=== PATIENT | female | born 1990 | race African-American/Black ===

== ENCOUNTER 2017-06-14 11:40 | Emergency (ER) | payer MEDICAID ==
[~2017-06-14] VITALS: Ht 182.9 cm; Wt 77.1 kg
[2017-06-14] MEDS ORDERED: cloNIDine HCL 0.1 MG TAB PO ONE (12:00)
[2017-06-14 13:04] VITALS: BP 136/101
== END 2017-06-14 13:12 | disposition home or self-care (01) ==
LOC: ER 11:40
DX: I10 Essential (primary) hypertension (principal); Z76.0 Encounter for issue of repeat prescription

== ENCOUNTER 2018-11-08 22:31 | Emergency (ER) | payer MEDICAID ==
[~2018-11-08] VITALS: Ht 182.9 cm; Wt 77.1 kg
[2018-11-08] MEDS ORDERED: cloNIDine HCL 0.1 MG TAB PO ONE (23:30)
[2018-11-09 00:42] VITALS: BP 123/95
== END 2018-11-09 00:52 | disposition home or self-care (01) ==
LOC: ER 22:31
DX: I16.0 Hypertensive urgency (principal)

== ENCOUNTER 2019-03-04 08:58 | Emergency (ER) | payer MEDICAID ==
[~2019-03-04] VITALS: Ht 182.9 cm; Wt 72.6 kg
[2019-03-04 09:21] VITALS: BP 148/104
[2019-03-04] MEDS ORDERED: METHOCARBAMOL 500 MG TAB PO ONE (09:45)
[2019-03-04] MEDS ORDERED: KETOROLAC TROMETH 60MG/2ML VIAL IM ONE (09:45)
== END 2019-03-04 10:15 | disposition home or self-care (01) ==
LOC: ER 09:00
DX: M51.34 Other intervertebral disc degeneration, thoracic region (principal); M62.838 Other muscle spasm; F17.210 Nicotine dependence, cigarettes, uncomplicated
CPT/HCPCS: 96372; 99283; J1885

== ENCOUNTER 2019-04-29 11:36 | Inpatient (IN) | payer MEDICAID ==
[~2019-04-29] VITALS: Ht 182.9 cm; Wt 75.3 kg
[2019-04-29] MEDS ORDERED: LORazepam 2MG/ML-1ML VIAL IV ONE (12:30)
[2019-04-29] MEDS ORDERED: LORazepam 0.5 MG TAB PO ONE (12:30)
[2019-04-29 12:53] LABS: Mean Corpuscular Hemoglobin 37.2 pg (28.0-32.0)
[2019-04-29 12:55] LABS: Hematocrit 36.3 % (36.0-46.0); Hemoglobin 12.4 g/dL (12.2-16.2); Mean Corpuscular Hgb Conc. 34.2 g/dL (32.0-36.0); Platelet Count (auto) 140 10^3/uL (140-450); Red Blood Cells 3.33 10^6/uL (4.0-5.20); Red Cell Distribution Width 15.5 % (11.8-14.3)
[2019-04-29 12:59] LABS: Basophils % (manual) 0 (0.0-2.0); Blast Cells 0; Eosinophils % (manual) 0 (0-7); Metamyelocytes % 0; Myelocytes % 0; Promyelocytes % 0; Reactive Lymphocytes 0
[2019-04-29 13:11] LABS: Albumin 3.1 g/dL (3.4-5.0); Anion Gap 15 (5-15); Blood Urea Nitrogen 5 mg/dL (7-18); Carbon Dioxide 25 mmol/L (21-32); Chloride 97 mmol/L (98-107); Glucose 118 mg/dL (74-106); Potassium 3.3 mmol/L (3.5-5.1); Sodium 137 mmol/L (136-145)
[2019-04-29 13:17] LABS: Alanine Aminotransferase 73 U/L (13-56); Alkaline Phosphatase 125 U/L (45-117); Aspartate Aminotransferase 335 U/L (15-37); Bilirubin, Total 0.9 mg/dL (0.2-1.0); GFR African American 137 mL/min; GFR Non-African American 113 mL/min; Total Protein 7.5 g/dL (6.4-8.2)
[2019-04-29 13:19] LABS: BUN/Creatinine Ratio 7.7
[2019-04-29 13:22] LABS: Calcium 5.8 mg/dL (8.5-10.1)
[2019-04-29 13:34] LABS: Band Neutrophils % (manual) 1; Lymphocytes % (manual) 45 (10.0-50.0); Monocytes % (manual) 20 (0-12)
[2019-04-29] MEDS ORDERED: SODIUM CHLORIDE 0.9% 1,000 ML IV ONE ×2 (15:08)
[2019-04-29] MEDS ORDERED: CALCIUM CHL 100MG/ML 1,000 MG in D5W 5% 100 ML IV ONE (15:15)
[2019-04-29] MEDS ORDERED: ONDANSETRON HCL 4 MG/2 ML VIAL IV ONE (16:45)
[2019-04-29] MEDS ORDERED: MORPHINE SULF INJ 2 MG/ML SYRINGE 1ML IV ONE (16:45)
[2019-04-29] MEDS ORDERED: KETOROLAC TROMETH 30 MG/ML 1ML VIAL IV ONE (17:00)
[2019-04-29] MEDS ORDERED: NICOTINE 14 MG/24HR TOPICAL PATCH TD ONE (19:15)
[2019-04-29] MEDS ORDERED: NITROGLYCERIN 0.4 MG SL TAB SL PRN (19:15)
[2019-04-29] MEDS ORDERED: MORPHINE SULF INJ 2 MG/ML SYRINGE 1ML IV PRN ×2 (19:15)
[2019-04-29] MEDS ORDERED: CALCIUM CHL 100MG/ML 500 MG in D5W 5% 100 ML IV ONE (19:15)
[2019-04-29] MEDS ORDERED: ACETAMINOPHEN 500 MG TAB PO PRN (19:15)
[2019-04-29] MEDS ORDERED: ONDANSETRON HCL 4 MG/2 ML VIAL IV PRN (19:15)
[2019-04-29 20:30] VITALS: BP 122/81
--- NOTE | 2019-04-29 20:30 | NUR ---
Telemetry admit from ER RAFAEL SEVILLA admitted to Telemetry unit after SBAR received. Patient oriented to LINA POPE RN primary RN, unit, room, bed, and unit policies regarding patient care and visiting hours. Patient now on continuous telemetry monitoring, tele box # 50 and telemetry reading on arrival to unit is SR. Patient placed on bedside oxygen, weighed by bedscale and encouraged to call if they need something. All questions and concerns addressed, patient verbalized understanding.
[2019-04-29] MEDS: SOD CHL 0.9%/ KCL 20MEQ 1,000 ML IV SCH (21:00)
[2019-04-29] MEDS: HYDROcodone-ACET 5/325MG TAB PO PRN (21:35)
[2019-04-29] MEDS: LORazepam 0.5 MG TAB PO PRN (21:35)
[2019-04-29 22:00] VITALS: BP 122/81
[2019-04-30 05:00] VITALS: BP 127/84
[2019-04-30] MEDS: SOD CHL 0.9%/ KCL 20MEQ 1,000 ML IV SCH ×2 (05:18→16:18)
[2019-04-30 07:31] LABS: BUN/Creatinine Ratio 10.8; Calcium 6.1 mg/dL (8.5-10.1)
[2019-04-30 07:36] LABS: Potassium 2.9 mmol/L (3.5-5.1)
--- NOTE | 2019-04-30 07:37 | NUR ---
CRITICAL LAB Received call from Cinthya tejeda, regarding critical potassium level, 2.9. On-call hospitalist paged, awaiting call back.
--- NOTE | 2019-04-30 07:44 | NUR ---
AWARE Received call back from Julian Chang PHYSICS PROFESSOR, new order received for Potassium 40meq PO.
[2019-04-30] MEDS ORDERED: POTASSIUM CHL 20 Meq TABLET PO ONE (07:45)
--- NOTE | 2019-04-30 08:00 | NUR ---
Opening Shift Note Assumed care of patient from NOC RN, Warner. patient is awake and alert with no S/S of distress/SOB or pain. Instructed on POC and to call for assistance PRN, verbalized understanding. Bed in lowest locked position with siderails up X2 call light within reach. Will continue to monitor for changes Q1hr and PRN.
[2019-04-30] MEDS: FAMOTIDINE 20 MG TAB PO SCH (08:18)
[2019-04-30] MEDS ORDERED: LOSA-69 PO (08:29)
[2019-04-30 08:33] VITALS: BP 135/90
--- NOTE | 2019-04-30 08:53 | NUR ---
URINE URINE SAMPLE COLLECTED AND SENT TO LAB VIA BULLET.
[2019-04-30 09:00] VITALS: BP 136/105
[2019-04-30 09:17] LABS: Urine Bacteria NONE SEEN /hpf (None Seen); Urine Blood Negative /uL (Negative); Urine Specific Gravity 1.017 (1.001-1.035); Urine WBC 1 /hpf (0 - 5)
--- NOTE | 2019-04-30 11:50 | NUR ---
AMA Patient signed AMA form for smoking purposes. Instructed on hospital policies, verbalized understanding.
[2019-04-30 13:00] VITALS: BP 148/102
[2019-04-30] MEDS ORDERED: LOSARTAN POTASSIUM 25 MG TAB PO ONE (15:30)
[2019-04-30 17:06] VITALS: BP 139/74
--- NOTE | 2019-04-30 18:40 | NUR ---
IV Removed leaking IV from right wrist, catheter intact and pressure dressing applied. New IV access obtained with 22g at the left AC after 4 attempts. Patient tolerated well.
--- NOTE | 2019-04-30 18:57 | NUR ---
CLOSING NOTE Endorsed care of patient to NOC Warner KERR.
--- NOTE | 2019-04-30 19:00 | NUR ---
Opening Shift Note Assumed care of patient, awake and alert. No S/S of distress/SOB or pain. Instructed on POC and to call for assist PRN, will continue to monitor for changes Q1hr and PRN.
--- NOTE | 2019-04-30 19:00 | NUR ---
[email or web address] [email or web address].v.[email or web address].v.u=[email or web address]&age.v.v=[email or web address]&ageGro up.v.c=[id number]&ageGroup.v.dn=Aged&patientPerson.administrativeGenderCode.c=F&patientPerson.a dministrativeGenderCode.dn=Female&performer=PROV&informationRecipient=PAT&q=[id number] [id number] Addendum: 04/30/19 at 1957 by LINA POPE RN RN Computer malfunction and random entry was entered.
[2019-04-30] MEDS: LORazepam 0.5 MG TAB PO PRN (20:15)
[2019-04-30] MEDS: HYDROcodone-ACET 5/325MG TAB PO PRN (20:15)
[2019-04-30 22:00] VITALS: BP 158/106
[2019-05-01 05:00] VITALS: BP 150/100
[2019-05-01] MEDS: SOD CHL 0.9%/ KCL 20MEQ 1,000 ML IV SCH (05:53)
[2019-05-01 06:43] LABS: Basophils # (auto) 0 uL; Eosinophils # (auto) 0 uL; Eosinophils % (auto) 1.1 % (0.0-7.0); Hemoglobin 10.3 g/dL (12.2-16.2); Lymphocytes # (auto) 1.8 uL; White Blood Cell 4.2 10^3/uL (4.4-10.8)
[2019-05-01 06:45] LABS: Basophils % (auto) 0.7 % (0.0-2.0); Lymphocytes % (auto) 43.2 % (10.0-50.0); Mean Corpuscular Hemoglobin 37.8 pg (28.0-32.0); Mean Corpuscular Hgb Conc. 34.4 g/dL (32.0-36.0); Mean Corpuscular Volume 110.1 fL (80.0-100.0); Monocytes # (auto) 0.6 uL; Monocytes % (auto) 13.3 % (0.0-12.0); Neutrophils # (auto) 1.7 uL; Neutrophils % (auto) 41.7 % (37.0-80.0); Platelet Count (auto) 93 10^3/uL (140-450); Red Blood Cells 2.72 10^6/uL (4.0-5.20); Red Cell Distribution Width 14.5 % (11.8-14.3)
[2019-05-01 07:01] LABS: Potassium 3.7 mmol/L (3.5-5.1)
[2019-05-01 07:12] LABS: Albumin 2.3 g/dL (3.4-5.0); BUN/Creatinine Ratio 14.3; Bilirubin, Total 0.4 mg/dL (0.2-1.0); Total Protein 5.6 g/dL (6.4-8.2)
--- NOTE | 2019-05-01 07:34 | NUR ---
CRITICAL LAB Received call from Mehul tejeda, regarding critical calcium level, 5.6, and critical magnesium level, 0.9. call person hospitalist paged, awaiting call back.
[2019-05-01 07:37] LABS: Calcium 5.6 mg/dL (8.5-10.1); Magnesium 0.9 mg/dL (1.6-2.6)
--- NOTE | 2019-05-01 07:55 | NUR ---
MD [place] Received call back from Julian Chang ASSEMBLER FINGER [employer]S, new orders received.
[2019-05-01] MEDS ORDERED: CALCIUM GLUC 4.65meq/50ml D5AE 50 ML IV ONE ×2 (08:00→10:00)
--- NOTE | 2019-05-01 08:00 | NUR ---
Opening Shift Note Assumed care of patient, awake and alert. No S/S of distress/SOB or pain. Instructed on POC and to call for assistance PRN. Bed in lowest position with siderails up X2 and call light within reach. Will continue to monitor for changes Q1hr and PRN.
[2019-05-01] MEDS: FAMOTIDINE 20 MG TAB PO SCH (09:30)
[2019-05-01] MEDS: LOSARTAN POTASSIUM 50 MG TAB PO SCH (09:31)
[2019-05-01] MEDS ORDERED: CHOLECALCIFEROL (VITD3) 1,000 UNIT TAB PO ONE (11:15)
[2019-05-01] MEDS ORDERED: POTASSIUM CHL 20 Meq TABLET PO ONE (11:15)
[2019-05-01] MEDS ORDERED: HCTZ 25 MG TAB PO ONE (11:30)
--- NOTE | 2019-05-01 12:18 | NUR ---
HYPERTENSION Paged Dr. Garcia regarding hypertension, 155/113. Awaiting call back.
[2019-05-01] MEDS: MAGNESIUM SULFATE 1GM/100ML 100 ML IV SCH ×4 (12:25→15:53)
[2019-05-01 13:00] VITALS: BP 155/113
--- NOTE | 2019-05-01 13:35 | NUR ---
AWARE Dr. Garcia aware of hypertension, no new orders at this time.
[2019-05-01] MEDS: LORazepam 0.5 MG TAB PO PRN ×2 (15:22→21:56)
--- NOTE | 2019-05-01 15:22 | NUR ---
IV Infiltrated IV removed, catheter intact and pressure dressing applied. IV access obtained, via clean sterile technique by inserting 22 gauge catheter at right forearm after 3 attempts. IV secured properly. No trauma to site. Patient tolerated well.
[2019-05-01 16:51] VITALS: BP 133/101
[2019-05-01 17:09] LABS: Calcium 6.6 mg/dL (8.5-10.1); Magnesium 1.7 mg/dL (1.6-2.6)
--- NOTE | 2019-05-01 19:10 | NUR ---
CLOSING NOTE Endorsed care of patient to NOC Warner KERR.
[2019-05-01 21:53] VITALS: BP 139/104
[2019-05-01] MEDS: HYDROcodone-ACET 5/325MG TAB PO PRN (21:56)
--- NOTE | 2019-05-01 22:01 | NUR ---
Hospitalist paged: Hospitalist paged d/t patient having an elevated blood pressure reading 139/104 with a HR of 88.
--- NOTE | 2019-05-01 22:20 | NUR ---
Hospitalist returned page: Hospitalist updated on patient condition and situation and new orders updated.
[2019-05-01] MEDS ORDERED: LABETALOL HCL 5 MG/ML ML 20ML VIAL IV ONE (22:30)
[2019-05-02] VITALS (7 sets, daily range): BP systolic 111–157; BP diastolic 71–110
--- NOTE | 2019-05-02 09:40 | NUR ---
URINE TOXICOLOGY UA COLLECTED AND SENT TO LAB VIA BULLET.
[2019-05-02] MEDS: FAMOTIDINE 20 MG TAB PO SCH (09:43)
[2019-05-02] MEDS: LOSARTAN POTASSIUM 50 MG TAB PO SCH (09:43)
[2019-05-02] MEDS: CHOLECALCIFEROL (VITD3) 1,000 UNIT TAB PO SCH (09:44)
[2019-05-02] MEDS: HCTZ 25 MG TAB PO SCH (09:44)
[2019-05-02] MEDS ORDERED: CHOLECALCIFEROL (VITD3) 1,000 UNIT TAB PO SCH (10:00)
[2019-05-02 10:25] LABS: Amphetamine Screen, Urine NEGATIVE (NEGATIVE); Barbiturate Scree,Urine NEGATIVE (NEGATIVE); Benzodiazephine Screen, Urine NEGATIVE (NEGATIVE); Cannabinoid Screen, Urine NEGATIVE (NEGATIVE); Cocaine Screen, Urine NEGATIVE (NEGATIVE); Opiate Scree,Urine NEGATIVE (NEGATIVE); Phencyclidine Screen, Urine NEGATIVE (NEGATIVE)
--- NOTE | 2019-05-02 11:52 | NUR ---
Nutrition Assessment Notes please see attached link for complete assessment Est. Needs BW [id number] kcal (25-30kcal/kgBW), 75-90 gms pro (1.0-1.2 gms/kgBW). Will continue to monitor pertinent labs and reassess nutrient need prn Addendum: 05/02/19 at [address] Amended: Links added.
--- NOTE | 2019-05-02 13:20 | NUR ---
BP REASSESSMENT REASSESSED BP AFTER ELEVATED READING. BP IS 127/90 WITH A HEART RATE OF 81. PER PATIENT SHE HAD RETURNED FROM SMOKING OUTSIDE PRIOR TO PREVIOUS READING. WILL CONTINUE TO MONITOR.
[2019-05-02 16:16] LABS: BUN/Creatinine Ratio 11.5; Calcium 6.7 mg/dL (8.5-10.1); Magnesium 1.4 mg/dL (1.6-2.6); Potassium 3.7 mmol/L (3.5-5.1)
--- NOTE | 2019-05-02 16:41 | NUR ---
PAGED DR. PATTERSON PAGED RE: MAG 1.4. WAITING FLORAL DECORATOR BACK.
--- NOTE | 2019-05-02 17:04 | NUR ---
ON-CALL HOSPITALIST PAGED PATIENTS BP 157/107 WITH A RETAKE OF 153/109, HR 83. NO PRN MEDICATIONS AVAILABLE. CALLED ON-CALL HOSPITALIST TO INFORM. WAITING COTTON JAMMER BACK.
--- NOTE | 2019-05-02 17:48 | NUR ---
ON-CALL HOSPITALIST PAGED MD PAGED AGAIN. WAITING RETICLE PRINTER BACK.
--- NOTE | 2019-05-02 17:50 | NUR ---
SPOKE TO MD SPOKE TO DR. ASKEW RE: MAG 1.4 AND RECENT BP. ORDERS RECEIVED FOR LABETALOL 10 MG IV Q2H PRN SBP GREATER THAN 150. ORDER READ BACK. NO FURTHER ORDERS. PT CURRENTLY OFF UNIT. WILL REASSESS BP UPON PATIENTS RETURN.
[2019-05-02] MEDS: LABETALOL HCL 5 MG/ML ML 20ML VIAL IV PRN ×2 (18:26→22:08)
--- NOTE | 2019-05-02 18:26 | NUR ---
RETURNED TO UNIT PT RETURNED TO UNIT. BP REASSESSED, CURRENTLY 163/108, HR 92. LABETALOL ADMINISTERED PER MD ORDER. RE-ASSESSMENT TO BE ENDORSED TO ONCOMING SHIFT.
--- NOTE | 2019-05-02 19:24 | NUR ---
Opening Shift Note Assumed care of patient, awake and alert x 4. No S/S of distress/SOB or pain. Bed is in lowest position and locked. Call light wihtin reach. Board updated. Tele box number matches monitor and leads are in correct placement. Instructed on POC and to call for assist PRN, will continue to monitor for changes Q1hr and PRN.
[2019-05-02] MEDS: LORazepam 0.5 MG TAB PO PRN (22:07)
[2019-05-02] MEDS: HYDROcodone-ACET 5/325MG TAB PO PRN (22:07)
[2019-05-03 05:00] VITALS: BP 129/85
[2019-05-03 06:28] LABS: Basophils # (auto) 0 uL; Hemoglobin 9.8 g/dL (12.2-16.2); Lymphocytes # (auto) 1.7 uL; Monocytes # (auto) 0.6 uL; Platelet Count (auto) 110 10^3/uL (140-450); White Blood Cell 4.8 10^3/uL (4.4-10.8)
[2019-05-03 06:30] LABS: Basophils % (auto) 0.9 % (0.0-2.0); Eosinophils # (auto) 0.1 uL; Eosinophils % (auto) 1.1 % (0.0-7.0); Mean Corpuscular Hemoglobin 37.8 pg (28.0-32.0); Mean Corpuscular Hgb Conc. 34.9 g/dL (32.0-36.0); Mean Corpuscular Volume 108.4 fL (80.0-100.0); Monocytes % (auto) 12.8 % (0.0-12.0); Neutrophils # (auto) 2.3 uL; Neutrophils % (auto) 49.2 % (37.0-80.0); Red Blood Cells 2.58 10^6/uL (4.0-5.20); Red Cell Distribution Width 14.5 % (11.8-14.3)
[2019-05-03 06:48] LABS: Potassium 3.5 mmol/L (3.5-5.1)
[2019-05-03 07:01] LABS: Albumin 2.5 g/dL (3.4-5.0); Bilirubin, Total 0.3 mg/dL (0.2-1.0); Calcium 6.3 mg/dL (8.5-10.1); Magnesium 1.3 mg/dL (1.6-2.6); Total Protein 5.8 g/dL (6.4-8.2)
--- NOTE | 2019-05-03 07:30 | NUR ---
Opening Shift Note Assumed care of patient, asleep, arouses to name. No S/S of distress/SOB or pain. Bed in lowest and locked position with side rails up x2 and call light in reach. Instructed on POC and to call for assist PRN, will continue to monitor for changes Q1hr and PRN.
[2019-05-03 09:00] VITALS: BP 144/78
[2019-05-03] MEDS: FAMOTIDINE 20 MG TAB PO SCH (09:32)
[2019-05-03] MEDS: LOSARTAN POTASSIUM 50 MG TAB PO SCH (09:32)
[2019-05-03] MEDS: HCTZ 25 MG TAB PO SCH (09:33)
[2019-05-03] MEDS: CHOLECALCIFEROL (VITD3) 1,000 UNIT TAB PO SCH (09:33)
[2019-05-03 13:00] VITALS: BP 146/101
[2019-05-03] MEDS ORDERED: CALCIUM CHL 100MG/ML 1,000 MG in D5W 5% 100 ML IV ONE (13:00)
[2019-05-03] MEDS: MAGNESIUM SULFATE 1GM/100ML 100 ML IV SCH ×2 (13:00→14:00)
--- NOTE | 2019-05-03 14:30 | NUR ---
PT DISCUSSED LEAVING AGAINST MEDICAL ADVICE. THIS RN EDUCATED THE IMPORTANCE OF THE PTS CARE IN THE HOSPITAL AND THE STATE OF THEIR ILLNESS. THE PT WAS EDUCATED THAT HER LEAVING CAN RESULT IN IF HER ILLNESS IS NOT CARED FOR. THE PT DISCUSSED LEAVING THE HOSPITAL WITH DR. PATTERSON WELL. ACCORDING TO THE DR, SHE HAD RECOMMENDED THE PT TO RECEIVE THE CALCIUM AND MAGNESIUM MEDICATIONS AND THE IMPORTANCE OF THE MEDICATIONS. THE PT VERBALIZED UNDERSTANDING. THE PT RECEIVED THE CALCIUM TREATMENT, BUT HAS REFUSED THE MAGNESIUM TREATMENTS. THE PT STATED "I HAVE A SON AT HOME AND MY SITE SAFETY COORDINATOR IS NOT WILLING TO WATCH HIM ANY LONGER. I NEED TO LEAVE TO TAKE CARE OF MY SON". THIS RN DISCUSSED THE IMPORTANCE OF THE PT RECEIVING HER MAGNESIUM PRIOR TO LEAVING AND THE PT CONTINUED TO DECLINE THE MAGNESIUM AND ASKED TO SIGN THE AMA PAPER WITH REMOVAL OF THE IV AND TELEMETRY BOX.
--- NOTE | 2019-05-03 14:30 | NUR ---
Encourage to follow up with PMD. Patient verbalized understanding. IV removed with catheter intact, pressure dressing applied. Telemetry unit returned to ICU.
--- NOTE | 2019-05-03 14:50 | NUR ---
PT REFUSED WHEEL CHAIR OR ASSISTANCE TO HER VEHICLE. THE PT WALKED OFF UNIT WITH NO DISTRESS NOTED AT THIS TIME AND WITH ALL PERSONAL BELONGINGS.
== END 2019-05-03 14:50 | disposition left against medical advice (07) | DRG 425 ==
LOC: ER 11:36 → TELE 11:37 → TELE-WESTW 20:34
PROVIDERS: ADMIT Nurse Practitioner Acute Care; ATTEND Internal Medicine
DX: E83.51 Hypocalcemia (principal); D69.6 Thrombocytopenia, unspecified; E83.42 Hypomagnesemia; E86.0 Dehydration; E87.6 Hypokalemia; I10 Essential (primary) hypertension; D64.9 Anemia, unspecified; Z53.21 Procedure and treatment not carried out due to patient leaving prior to being seen by health care provider; F41.1 Generalized anxiety disorder; Z72.0 Tobacco use; Z71.6 Tobacco abuse counseling; Z79.899 Other long term (current) drug therapy
CPT/HCPCS: 36415; 71045; 80048; 80053; 80307; 81001; 82306; 82310; 83735; 83970; 84132; 84443; 84484; 85007; 85025; 85027; 93005; 96361; 96365; 96375; G0378; J0610; J1885; J2405; J7060

== ENCOUNTER → 2019-07-29 | Emergency (ER) | payer MEDICAID ==
[~2019-07-29] MED LIST: LOSA-69 PO
== END | disposition left against medical advice (07) ==
LOC: ER 21:35
DX: I10 Essential (primary) hypertension (principal); Z53.21 Procedure and treatment not carried out due to patient leaving prior to being seen by health care provider

== ENCOUNTER 2019-08-02 19:06 | Emergency (ER) | payer MEDICAID ==
[~2019-08-02] VITALS: Ht 182.9 cm; Wt 72.6 kg
[2019-08-02] MEDS ORDERED: cloNIDine HCL 0.1 MG TAB PO ONE (19:45)
[2019-08-02 19:50] VITALS: BP 184/131
== END 2019-08-02 21:29 | disposition left against medical advice (07) ==
LOC: ER 19:08
DX: J34.89 Other specified disorders of nose and nasal sinuses (principal); Z53.21 Procedure and treatment not carried out due to patient leaving prior to being seen by health care provider

== ENCOUNTER → 2019-09-13 | Emergency (ER) | payer MEDICAID ==
[~2019-09-13] VITALS: Ht 182.9 cm; Wt 74.8 kg
[~2019-09-13] MED LIST changes: +LORazepam 2MG/ML-1ML VIAL IV ONE; +MAGNESIUM SULFATE 1GM/100ML 100 ML IV ONE; +ONDANSETRON HCL 4 MG/2 ML VIAL IV ONE; +POTASSIUM EFFERVESENT TAB 25 MEQ PO ONE; +cloNIDine HCL 0.1 MG TAB PO ONE
[2019-09-13 21:20] LABS: White Blood Cell 2.2 10^3/uL (4.4-10.8)
[2019-09-13 21:22] LABS: Hematocrit 34.7 % (36.0-46.0); Hemoglobin 12.1 g/dL (12.2-16.2); Mean Corpuscular Hemoglobin 37.5 pg (28.0-32.0); Mean Corpuscular Hgb Conc. 34.9 g/dL (32.0-36.0); Mean Corpuscular Volume 107.3 fL (80.0-100.0); Platelet Count (auto) 97 10^3/uL (140-450); Red Blood Cells 3.24 10^6/uL (4.0-5.20); Red Cell Distribution Width 18.2 % (11.8-14.3)
[2019-09-13 21:23] LABS: Basophils % (manual) 0 (0.0-2.0); Blast Cells 0; Myelocytes % 0; Promyelocytes % 0; Reactive Lymphocytes 0
[2019-09-13 21:35] LABS: INR 1.18 (0.9-1.15); Partial Thromboplastin Time 26.5 sec (23.64-32.05)
[2019-09-13 21:38] LABS: Albumin 2.9 g/dL (3.4-5.0); BUN/Creatinine Ratio 7.3; Calcium 6.8 mg/dL (8.5-10.1)
[2019-09-13 21:43] LABS: Bilirubin, Total 0.7 mg/dL (0.2-1.0); Total Protein 7.1 g/dL (6.4-8.2)
[2019-09-13 21:45] LABS: Band Neutrophils % (manual) 2; Eosinophils % (manual) 1 (0-7); Lymphocytes % (manual) 47 (10.0-50.0); Metamyelocytes % 5; Monocytes % (manual) 4 (0-12)
[2019-09-13 21:48] LABS: Magnesium 0.9 mg/dL (1.6-2.6); Potassium 2.8 mmol/L (3.5-5.1)
[2019-09-13 23:29] LABS: Urine WBC None Seen /hpf (0 - 5)
[2019-09-13 23:45] LABS: Urine Bacteria NONE SEEN /hpf (None Seen); Urine Blood Negative /uL (Negative); Urine Specific Gravity 1.004 (1.001-1.035)
[2019-09-14] VITALS: BP 120/85
== END | disposition home or self-care (01) ==
LOC: ER 20:53
DX: I10 Essential (primary) hypertension (principal); E83.51 Hypocalcemia; E83.42 Hypomagnesemia; F41.9 Anxiety disorder, unspecified; F17.210 Nicotine dependence, cigarettes, uncomplicated
CPT/HCPCS: 36415; 80053; 81001; 83735; 83880; 84484; 84702; 85007; 85027; 85379; 85610; 85730; 93005; 96365; 96366; 96375; 99285; J2060; J2405; J3475

== ENCOUNTER 2020-01-06 11:29 | Inpatient (IN) | payer MEDICAID ==
[~2020-01-06] VITALS: Ht 182.9 cm; Wt 72.1 kg
[~2020-01-06 11:29] MED LIST changes: -LORazepam 2MG/ML-1ML VIAL IV ONE; -MAGNESIUM SULFATE 1GM/100ML 100 ML IV ONE; -ONDANSETRON HCL 4 MG/2 ML VIAL IV ONE; -POTASSIUM EFFERVESENT TAB 25 MEQ PO ONE; -cloNIDine HCL 0.1 MG TAB PO ONE
[2020-01-06 11:57] LABS: Basophils # (auto) 0 10 ^3/uL (0-0.2); Basophils % (auto) 0.5 % (0.0-2.0); Eosinophils # (auto) 0 10 ^3/uL (0-0.8); Hemoglobin 11.6 g/dL (12.2-16.2); Lymphocytes # (auto) 2.4 10 ^3/uL (0.4-5.4); Nucleated Red Blood Cells % 0.1 %
[2020-01-06 11:59] LABS: Eosinophils % (auto) 0.8 % (0.0-7.0); Lymphocytes % (auto) 46.6 % (10.0-50.0); Mean Corpuscular Hemoglobin 37.3 pg (28.0-32.0); Mean Corpuscular Hgb Conc. 34.1 g/dL (32.0-36.0); Mean Corpuscular Volume 109.5 fL (80.0-100.0); Monocytes # (auto) 0.7 10 ^3/uL (0-1.3); Monocytes % (auto) 14.4 % (0.0-12.0); Neutrophils # (auto) 1.9 10 ^3/uL (1.6-8.6); Neutrophils % (auto) 37.7 % (37.0-80.0); Platelet Count (auto) 91 10^3/uL (140-450); Red Blood Cells 3.11 10^6/uL (4.0-5.20); Red Cell Distribution Width 16.4 % (11.8-14.3)
[2020-01-06 12:12] LABS: Albumin 3.2 g/dL (3.4-5.0); Calcium 6.4 mg/dL (8.5-10.1); Potassium 3.4 mmol/L (3.5-5.1)
[2020-01-06 12:16] LABS: BUN/Creatinine Ratio 8.3; Bilirubin, Total 0.7 mg/dL (0.2-1.0); Total Protein 7.5 g/dL (6.4-8.2)
[2020-01-07] MEDS ORDERED: LOSARTAN POTASSIUM 50 MG TAB PO ONE (02:15)
[2020-01-07] MEDS: MAGNESIUM SULFATE 1GM/100ML 100 ML IV SCH ×4 (02:42→05:55)
[2020-01-07] MEDS ORDERED: LORazepam 0.5 MG TAB PO ONE (03:00)
[2020-01-07] MEDS ORDERED: CALCIUM GLUC 4.65meq/50ml D5AE 50 ML IV ONE (05:15)
[2020-01-07] MEDS ORDERED: ACETAMINOPHEN 325 MG TAB PO PRN (05:15)
[2020-01-07] MEDS ORDERED: POTASSIUM CHL 20 Meq TABLET PO ONE (05:15)
[2020-01-07] MEDS ORDERED: TEMAZEPAM 15 MG CAP PO PRN (05:15)
[2020-01-07] MEDS ORDERED: ONDANSETRON HCL 4 MG/2 ML VIAL IV PRN (05:15)
[2020-01-07] MEDS ORDERED: MORPHINE SULF INJ 2 MG/ML SYRINGE 1ML IV PRN (05:30)
[2020-01-07] MEDS ORDERED: NITROGLYCERIN 0.4 MG SL TAB SL PRN (05:30)
[2020-01-07 09:00] VITALS: BP 104/69
[2020-01-07 10:22] LABS: BUN/Creatinine Ratio 7.6; Magnesium 1.6 mg/dL (1.6-2.6); Potassium 3.4 mmol/L (3.5-5.1)
[2020-01-07 10:31] LABS: Calcium 5.9 mg/dL (8.5-10.1)
[2020-01-07] MEDS: LOSARTAN POTASSIUM 50 MG TAB PO SCH (11:00)
[2020-01-07] MEDS: FAMOTIDINE 20 MG TAB PO SCH ×2 (11:01→21:41)
[2020-01-07 12:49] VITALS: BP 103/73
[2020-01-07] MEDS ORDERED: CALCIUM CHL 100MG/ML 500 MG in D5W 5% 100 ML IV ONE (14:15)
[2020-01-07] MEDS ORDERED: LORA1TAB12 PO (14:29)
[2020-01-07] MEDS ORDERED: MULTTAB61 PO (14:29)
[2020-01-07 17:00] VITALS: BP_SYST 105; BP_SYST 123; BP_DIAS 66; BP_DIAS 84
[2020-01-07 18:36] LABS: Calcium 6.2 mg/dL (8.5-10.1); Magnesium 1.5 mg/dL (1.6-2.6); Potassium 3.6 mmol/L (3.5-5.1)
[2020-01-07 22:00] VITALS: BP 129/91
[2020-01-08 05:00] VITALS: BP 142/97
[2020-01-08 05:58] LABS: Basophils # (auto) 0 10 ^3/uL (0-0.2); Eosinophils # (auto) 0 10 ^3/uL (0-0.8); Lymphocytes # (auto) 1.5 10 ^3/uL (0.4-5.4); Neutrophils # (auto) 2.2 10 ^3/uL (1.6-8.6)
[2020-01-08 06:01] LABS: Basophils % (auto) 0.8 % (0.0-2.0); Hematocrit 29.2 % (36.0-46.0); Hemoglobin 10.1 g/dL (12.2-16.2); Lymphocytes % (auto) 35.5 % (10.0-50.0); Mean Corpuscular Hemoglobin 38.4 pg (28.0-32.0); Mean Corpuscular Hgb Conc. 34.5 g/dL (32.0-36.0); Mean Corpuscular Volume 111.3 fL (80.0-100.0); Monocytes # (auto) 0.4 10 ^3/uL (0-1.3); Monocytes % (auto) 10.8 % (0.0-12.0); Neutrophils % (auto) 51.9 % (37.0-80.0); Platelet Count (auto) 77 10^3/uL (140-450); Red Blood Cells 2.62 10^6/uL (4.0-5.20); Red Cell Distribution Width 16.6 % (11.8-14.3); White Blood Cell 4.1 10^3/uL (4.4-10.8)
[2020-01-08 06:19] LABS: Calcium 6.2 mg/dL (8.5-10.1); Potassium 3.8 mmol/L (3.5-5.1)
[2020-01-08 06:24] LABS: Albumin 2.4 g/dL (3.4-5.0); BUN/Creatinine Ratio 9.6; Bilirubin, Total 0.4 mg/dL (0.2-1.0); Magnesium 1.4 mg/dL (1.6-2.6)
[2020-01-08 08:00] VITALS: BP 133/100
[2020-01-08 09:00] VITALS: BP 133/100
[2020-01-08] MEDS: FAMOTIDINE 20 MG TAB PO SCH (09:26)
[2020-01-08] MEDS: LOSARTAN POTASSIUM 50 MG TAB PO SCH (09:26)
[2020-01-08] MEDS ORDERED: CALCIUM CHL 100MG/ML 1,000 MG in D5W 5% 100 ML IV ONE (09:30)
[2020-01-08] MEDS ORDERED: CHOLECALCIFEROL (VITD3) 1,000IU=25mCg TAB PO SCH (10:00)
[2020-01-08] MEDS ORDERED: MAGN400C2 PO (11:25)
[2020-01-08] MEDS ORDERED: CHOL20007 PO (11:25)
[2020-01-08] MEDS ORDERED: CALC600T38 PO (11:29)
[2020-01-08] MEDS: MAGNESIUM SULFATE 1GM/100ML 100 ML IV SCH ×2 (11:44→11:46)
[2020-01-08 11:47] VITALS: BP 133/100
[2020-01-08 13:59] LABS: Amphetamine Screen, Urine NEGATIVE (NEGATIVE); Barbiturate Scree,Urine NEGATIVE (NEGATIVE); Benzodiazephine Screen, Urine NEGATIVE (NEGATIVE); Cannabinoid Screen, Urine NEGATIVE (NEGATIVE); Cocaine Screen, Urine NEGATIVE (NEGATIVE); Opiate Scree,Urine NEGATIVE (NEGATIVE); Phencyclidine Screen, Urine NEGATIVE (NEGATIVE)
[2020-01-08 14:03] LABS: Alcohol, Urine < 3.0 mg/dL (0-10)
[2020-01-11 10:02] LABS: Hepatitis B Surface Antibody Negative
[2020-01-11 10:37] LABS: Hepatitis A Total Antibody Positive
[2020-01-11 11:10] LABS: Hepatitis B Core Total AB Negative; Hepatitis B Surface Antigen Negative (Negative); Hepatitis C Antibody Negative (Negative)
== END 2020-01-08 16:27 | disposition home or self-care (01) | DRG 425 ==
LOC: ER 11:29 → TELE 11:30 → TELE-CENTR 01-07 06:45
PROVIDERS: ADMIT Nurse Practitioner; ATTEND Internal Medicine
DX: E87.6 Hypokalemia (principal); D69.59 Other secondary thrombocytopenia; E83.42 Hypomagnesemia; K70.9 Alcoholic liver disease, unspecified; E83.51 Hypocalcemia; E44.1 Mild protein-calorie malnutrition; D53.9 Nutritional anemia, unspecified; Z68.21 Body mass index [BMI] 21.0-21.9, adult; F10.10 Alcohol abuse, uncomplicated; F17.210 Nicotine dependence, cigarettes, uncomplicated; F41.1 Generalized anxiety disorder; I10 Essential (primary) hypertension; Z82.5 Family history of asthma and other chronic lower respiratory diseases; Z71.51 Drug abuse counseling and surveillance of drug abuser; Z71.6 Tobacco abuse counseling; K76.0 Fatty (change of) liver, not elsewhere classified
CPT/HCPCS: 36415; 71045; 76705; 80048; 80053; 80307; 81025; 82306; 82310; 83735; 83970; 84100; 84132; 84702; 85025; 86704; 86706; 86708; 86803; 87340; 93005; 96365; 96366; 96368; 99291; G0378; J0610; J7060

== ENCOUNTER 2021-03-11 12:36 | Emergency (ER) | payer MEDICAID ==
[~2021-03-11] VITALS: Ht 182.9 cm; Wt 68.0 kg
[~2021-03-11 12:36] MED LIST changes: +CALC600T16 PO; +CHOL20007 PO; +LORA1TAB23 PO; +MAGN400C2 PO; +MULT-1018 PO
[2021-03-11 13:44] VITALS: BP 148/113
[2021-03-11] MEDS ORDERED: KETOROLAC TROMETH 60MG/2ML VIAL IM ONE (15:15)
== END 2021-03-11 15:43 | disposition home or self-care (01) ==
LOC: ER 12:36
DX: S29.012A Strain of muscle and tendon of back wall of thorax, initial encounter (principal); I10 Essential (primary) hypertension; F17.210 Nicotine dependence, cigarettes, uncomplicated; Z79.899 Other long term (current) drug therapy; X58.XXXA Exposure to other specified factors, initial encounter; Y93.89 Activity, other specified; Y92.89 Other specified places as the place of occurrence of the external cause; Y99.8 Other external cause status
CPT/HCPCS: 72070; 96372; 99283; J1885

== ENCOUNTER 2022-01-03 12:37 | Emergency (ER) | payer MEDICAID ==
[~2022-01-03] VITALS: Ht 182.9 cm; Wt 65.8 kg
[2022-01-03 16:20] VITALS: BP 130/95
== END 2022-01-03 17:37 | disposition home or self-care (01) ==
LOC: ER 12:37
DX: M67.823 Other specified disorders of tendon, right elbow (principal); I10 Essential (primary) hypertension; F17.210 Nicotine dependence, cigarettes, uncomplicated
CPT/HCPCS: 73080

== ENCOUNTER 2022-11-02 18:07 | Emergency (ER) | payer MEDICAID ==
[~2022-11-02] VITALS: Ht 182.9 cm; Wt 68.0 kg
[2022-11-02 20:42] VITALS: BP 155/106
[2022-11-02 21:22] LABS: Eosinophils # (auto) 0.1 10 ^3/uL (0-0.8); Hemoglobin 10.9 g/dL (12.2-16.2); Lymphocytes # (auto) 2.6 10 ^3/uL (0.4-5.4); Mean Corpuscular Hemoglobin 37.9 pg (28.0-32.0); Monocytes # (auto) 0.9 10 ^3/uL (0-1.3); Neutrophils # (auto) 4.3 10 ^3/uL (1.6-8.6); Red Cell Distribution Width 16.9 % (11.8-14.3); White Blood Cell 7.9 10^3/uL (4.4-10.8)
[2022-11-02 21:23] LABS: Basophils # (auto) 0.1 10 ^3/uL (0-0.2); Basophils % (auto) 0.8 % (0.0-2.0); Eosinophils % (auto) 1.2 % (0.0-7.0); Hematocrit 31.5 % (36.0-46.0); Lymphocytes % (auto) 32.6 % (10.0-50.0); Mean Corpuscular Hgb Conc. 34.6 g/dL (32.0-36.0); Mean Corpuscular Volume 109.6 fL (80.0-100.0); Monocytes % (auto) 11.2 % (0.0-12.0); Neutrophils % (auto) 54.2 % (37.0-80.0); Nucleated Red Blood Cells % 0.1 %; Red Blood Cells 2.88 10^6/uL (4.0-5.20)
[2022-11-02 21:26] LABS: Albumin 3.1 g/dL (3.4-5.0); Calcium 8.5 mg/dL (8.5-10.1); Magnesium 1.6 mg/dL (1.6-2.6); Potassium 3.3 mmol/L (3.5-5.1)
[2022-11-02 21:29] LABS: BUN/Creatinine Ratio 16.7 (10.0-20.0); Bilirubin, Total 0.2 mg/dL (0.2-1.0); Total Protein 7.3 g/dL (6.4-8.2)
[2022-11-02] MEDS ORDERED: KETOROLAC TROMETH 60MG/2ML VIAL IM ONE (23:00)
== END 2022-11-02 23:03 | disposition home or self-care (01) ==
LOC: ER 18:07
DX: M79.641 Pain in right hand (principal); M54.2 Cervicalgia; R53.1 Weakness; I10 Essential (primary) hypertension; F17.210 Nicotine dependence, cigarettes, uncomplicated; Z88.6 Allergy status to analgesic agent
CPT/HCPCS: 36415; 70450; 72125; 80053; 83735; 85025; 96372; 99285; J1885

== ENCOUNTER 2023-01-12 17:44 | Emergency (ER) | payer MEDICAID ==
[~2023-01-12] VITALS: Ht 182.9 cm; Wt 70.0 kg
[~2023-01-12 17:44] MED LIST changes: +LORA-1123 PO; -LORA1TAB23 PO; -LOSA-69 PO; +LOSA50TA46 PO
[2023-01-12] MEDS ORDERED: SODIUM CHLORIDE 0.9% 1,000 ML IVB ONE (20:45)
[2023-01-12] MEDS ORDERED: MECLIZINE HCL 25 MG TAB PO ONE (20:45)
[2023-01-12] MEDS ORDERED: ONDANSETRON HCL 4 MG/2 ML VIAL IV ONE (20:45)
[2023-01-12] MEDS ORDERED: ACETAMINOPHEN 325 MG TAB PO ONE (20:45)
[2023-01-12 21:21] VITALS: BP 109/82
[2023-01-12 22:08] LABS: Basophils # (auto) 0 10 ^3/uL (0-0.2); Eosinophils # (auto) 0 10 ^3/uL (0-0.8); Eosinophils % (auto) 0.4 % (0.0-7.0); Lymphocytes # (auto) 1.6 10 ^3/uL (0.4-5.4); Monocytes # (auto) 0.5 10 ^3/uL (0-1.3); Neutrophils # (auto) 2.7 10 ^3/uL (1.6-8.6)
[2023-01-12 22:09] LABS: Basophils % (auto) 0.6 % (0.0-2.0); Hematocrit 31.7 % (36.0-46.0); Hemoglobin 10.9 g/dL (12.2-16.2); Lymphocytes % (auto) 32.9 % (10.0-50.0); Mean Corpuscular Hemoglobin 37.3 pg (28.0-32.0); Mean Corpuscular Hgb Conc. 34.3 g/dL (32.0-36.0); Mean Corpuscular Volume 108.6 fL (80.0-100.0); Monocytes % (auto) 10.5 % (0.0-12.0); Neutrophils % (auto) 55.6 % (37.0-80.0); Red Blood Cells 2.92 10^6/uL (4.0-5.20); Red Cell Distribution Width 16.3 % (11.8-14.3); White Blood Cell 4.8 10^3/uL (4.4-10.8)
[2023-01-12 22:22] LABS: Albumin 3.3 g/dL (3.4-5.0); Calcium 7.8 mg/dL (8.5-10.1); INR 1.08 (0.9-1.15); Magnesium 1.6 mg/dL (1.6-2.6); Partial Thromboplastin Time 24.6 SEC (24.5-34.5)
[2023-01-12 22:25] LABS: BUN/Creatinine Ratio 13.8 (10.0-20.0); Bilirubin, Total 0.2 mg/dL (0.2-1.0); Total Protein 6.8 g/dL (6.4-8.2)
[2023-01-12] MEDS ORDERED: POTASSIUM CHL 20 Meq TABLET PO ONE (22:45)
== END 2023-01-12 22:51 | disposition home or self-care (01) ==
LOC: EDBD 17:44 → ER 17:44
DX: R55 Syncope and collapse (principal); R51.9 Headache, unspecified; R07.89 Other chest pain; I10 Essential (primary) hypertension; F17.210 Nicotine dependence, cigarettes, uncomplicated; Z79.899 Other long term (current) drug therapy
CPT/HCPCS: 36415; 70450; 71045; 80053; 83735; 83880; 84484; 85025; 85610; 85730; 93005; 96361; 96374; 99285; J2405; J7030; J8597

== ENCOUNTER 2023-05-13 18:42 | Emergency (ER) | payer MEDICAID ==
[~2023-05-13] VITALS: Ht 182.9 cm; Wt 76.8 kg
[2023-05-13 19:00] VITALS: BP 145/97; PULSE 93; RESP 18; TEMP 98.3; O2SAT 100
[2023-05-13] MEDS ORDERED: AMOX875T4 PO (19:22)
[2023-05-13] MEDS ORDERED: ACET500T58 PO (19:22)
[2023-05-13 19:36] LABS: Chloride 104 mmol/L (98-107); Potassium 3.6 mmol/L (3.5-5.1); Sodium 138 mmol/L (136-145)
[2023-05-13 19:37] LABS: Anion Gap 6 (5-15); Carbon Dioxide 28 mmol/L (20-30)
[2023-05-13 19:38] LABS: Calcium 8.6 mg/dL (8.7-10.4)
[2023-05-13 19:42] LABS: Glucose 95 mg/dL (74-106)
[2023-05-13 19:43] LABS: BUN/Creatinine Ratio 7.4 (10.0-20.0); Blood Urea Nitrogen 6 mg/dL (9-23)
== END 2023-05-13 20:05 | disposition home or self-care (01) ==
LOC: ER 18:42
DX: H66.91 Otitis media, unspecified, right ear (principal); I10 Essential (primary) hypertension; F17.210 Nicotine dependence, cigarettes, uncomplicated
CPT/HCPCS: 36415; 80048